=== PATIENT | male | born 1965 | race Caucasian/White ===

== ENCOUNTER → 2016-06-28 | Outpatient (CLI) | payer OTHER ==
[~2016-06-28] MED LIST: ACETAMINOPHEN PO; CALCIUM CITRATE1 T12 PO; CENTRUM PO; CERTAGEN PO; CITRACAL + D CA1 TA1; DIASTAT ACUDIAL1 KIT; DIASTAT10 MG PR; DITROPAN PO; DITROPAN XL PO; DITROPAN5 MG; DITROPAN5 MG PO; GAS RELIEF; GAS-X125 M1; GAS-X125 M1 PO; GAS-X166 MG PO; LACTULOSE10 G/15 M1 PO; LACTULOSE10 G/15 M3 PO; LACTULOSE10 G/15 ML PO; LEVOTHROID50 MCG; LOVASTATIN20 MG PO; MEVACOR PO; MEVACOR20 M1; NEXIUM PO; NEXIUM20 MG PO; OYSTER CALCIUM500 MG PO; PREVACID PO; PRILOSEC PO; SENNA8.6 M1 PO; SENNA8.6 M2; SYNTHROID PO; SYNTHROID75 MCG PO; THERAGRAN1 TAB; TRIDESILON 0.0515 G2; TYLENOL325 M1 PO
== END | disposition home or self-care (01) ==
LOC: CSSDAY 10:55
DX: M81.8 Other osteoporosis without current pathological fracture (principal)
CPT/HCPCS: 96372; J0897

== ENCOUNTER 2016-12-06 16:57 | Emergency (ER) | payer OTHER ==
--- NOTE | ~2016-12-06 | EKG ---
PATIENT: TOMASZ KHAN UNIT #: [id number] Ventricular Rate: 68 BPM Atrial Rate: 68 BPM P-R Interval: 160 ms QRS Duration: 74 ms Q-T Interval: 370 ms QTC Calculation(Bezet): 393 ms P [place]: 33 degrees Calculated R [place]: 46 degrees Calculated T [place]: 54 degrees Diagnosis Line: Normal sinus rhythm Diagnosis Line: Nonspecific T wave abnormality Diagnosis Line: Abnormal ECG Diagnosis Line: When compared with ECG of 20-SEP-2014 13:46, Diagnosis Line: Nonspecific T wave abnormality, improved in Diagnosis Line: Lateral leads Diagnosis Line: Confirmed by STEVE DAVILA MD ([id number]) on Diagnosis Line: 12/08/2016 4:43:17 PM INTERPRETING MD: DENNISE
== END 2016-12-06 19:41 | disposition short-term general hospital (02) ==
LOC: CED 16:57
DX: Z00.01 Encounter for general adult medical examination with abnormal findings (principal)
CPT/HCPCS: 93005; 99285